=== PATIENT | female | born 1955 | race Caucasian/White ===

== ENCOUNTER 2017-08-02 06:54 | Day surgery (SDC) | payer OTHER ==
[2017-07-26 12:10] VITALS: BMI 22.4
[2017-08-02] MEDS ORDERED: PROPOFOL 20 ML ONE ×2 (07:01)
[2017-08-02] MEDS ORDERED: LIDOCAINE HCL/PF 2% SDV 5ML VIAL ONE (07:08)
[2017-08-02 08:56] VITALS: TEMP 98.2
[2017-08-02 09:18] VITALS: BP 104/69; PULSE 86
== END 2017-08-02 09:19 | disposition home or self-care (01) ==
LOC: FASU-ENDO 06:54
PROVIDERS: ATTEND Internal Medicine Gastroenterology
PROC: 0DJD8ZZ Inspection of Lower Intestinal Tract, Via Natural or Artificial Opening Endoscopic (ICD-10-PCS; principal; 2017-08-02 08:28)
DX: Z12.11 Encounter for screening for malignant neoplasm of colon (principal); Z83.71 Family history of colonic polyps